=== PATIENT | female | born 1945 | race Two or more races ===

== ENCOUNTER 2019-10-22 20:17 | Emergency (ER) | payer SELFPAY ==
[~2019-10-22] VITALS: Ht 165.1 cm; Wt 62.4 kg
[2019-10-22] MEDS ORDERED: SODIUM CHLORIDE 0.9% 1,000ML IVBOLUS ONE (21:00)
[2019-10-22] MEDS ORDERED: ONDANSETRON 2MG/ML, 2ML IVPush ONE (21:00)
[2019-10-22] MEDS ORDERED: SODIUM CHLORIDE FLUSH 10ML SYR IVF ONE (21:00)
--- NOTE | 2019-10-22 21:05 | NUR ---
PT UP TO RESTROOM.
[2019-10-22] MEDS ORDERED: ONDANSETRON 2MG/ML, 2ML ONE (21:15)
[2019-10-22] MEDS ORDERED: MORPHINE SULFATE 4 MG/ML, 1ML ONE ×2 (21:15→22:35)
[2019-10-22] MEDS: MORPHINE SULFATE 4 MG/ML, 1ML IVPush PRN ×2 (21:25→22:38)
[2019-10-22 21:31] LABS: MICROSCOPIC AUTO
--- NOTE | 2019-10-22 21:42 | NUR ---
CT PENDING CREATINE.
[2019-10-22 21:45] LABS: BASOPHILS # (AUTO) 0.06 x10^3/uL (0-0.1); BASOPHILS % (AUTO) 1 % (0-1); EOSINOPHILS # (AUTO) 0.79 x10^3/uL (0-0.4); EOSINOPHILS % (AUTO) 9 % (1-7); LYMPHOCYTES # (AUTO) 2.91 x10^3/uL (1-3.4); LYMPHOCYTES % (AUTO) 33 % (22-44); MD NO; MEAN CORPUSCULAR HEMOGLOBIN 30.7 pg (27.0-34.8); MEAN CORPUSCULAR HGB CONC 33.3 g/dL (32.4-35.8); MEAN CORPUSCULAR VOLUME 92.1 fL (80-100); MEAN PLATELET VOLUME 8.4 fL (7.4-10.4); MONOCYTES # (AUTO) 0.92 x10^3/uL (0.2-0.8); MONOCYTES % (AUTO) 10 % (2-9); NEUTROPHILS # (AUTO) 4.19 x10^3/uL (1.8-6.8); NEUTROPHILS % (AUTO) 47 % (42-75); PLATELET COUNT 264 x10^3/uL (130-400); RED BLOOD COUNT 4.13 x10^6/uL (3.82-5.3); RED CELL DISTRIBUTION WIDTH 14.3 % (9.6-15.2)
[2019-10-22 21:57] LABS: ALANINE AMINOTRANSFERASE 35 U/L (12-78); ALBUMIN 3.4 g/dL (3.4-5.0); ANION GAP 8 mmol/L (5-15); CALCIUM 8.6 mg/dL (8.5-10.1); CHLORIDE 109 mmol/L (98-107)
[2019-10-22 22:00] LABS: ALKALINE PHOSPHATASE 45 U/L (45-117); BILIRUBIN,TOTAL 0.7 mg/dL (0.2-1.0); TOTAL PROTEIN 7.2 g/dL (6.4-8.2)
--- NOTE | 2019-10-22 22:16 | NUR ---
PT GOING TO CT NOW.
[2019-10-22] MEDS ORDERED: OMNIPAQUE 350 MG/ML, 100ML BOTTLE ONE (22:26)
[2019-10-22] MEDS ORDERED: LIDODERM 5% PATCH TD ONE (23:09)
[2019-10-22] MEDS ORDERED: ACETAMINOPHEN 500 MG TABLET ONE (23:10)
[2019-10-22 23:22] VITALS: BP 141/69
[2019-10-22] MEDS ORDERED: ALEN70TA6 PO (23:26)
[2019-10-22] MEDS ORDERED: METF500T17 PO ×2 (23:26)
[2019-10-22] MEDS ORDERED: ATOR20TA37 PO (23:26)
[2019-10-23] MEDS ORDERED: LIDODERM 5% PATCH TD ONE
[2019-10-23] MEDS ORDERED: ACETAMINOPHEN 500 MG TABLET PO ONE
== END 2019-10-22 23:43 | disposition home or self-care (01) ==
LOC: ED 23:10
DX: S39.012A Strain of muscle, fascia and tendon of lower back, initial encounter (principal); M43.16 Spondylolisthesis, lumbar region; R10.31 Right lower quadrant pain; R10.11 Right upper quadrant pain; E11.9 Type 2 diabetes mellitus without complications; E78.5 Hyperlipidemia, unspecified; X58.XXXA Exposure to other specified factors, initial encounter; Y93.89 Activity, other specified; Y92.89 Other specified places as the place of occurrence of the external cause; Y99.8 Other external cause status
CPT/HCPCS: 36415; 74177; 80053; 81001; 83690; 85025; 87086; 96374; 96375; 96376; 99285; J2270; J2405; J7030; Q9967